=== PATIENT | female | born 1960 | race Caucasian/White ===

== ENCOUNTER → 2017-08-28 | Outpatient (REF) ==
[2017-08-28 18:56] LABS: THYROID STIMULATING HORMONE 1.05 uIU/mL (0.465-4.680)
== END ==
LOC: ZLAB.WCH 18:06
PROVIDERS: Family Medicine
DX: Z01.89 Encounter for other specified special examinations (principal)

== ENCOUNTER → 2022-05-21 | Outpatient (REF) | LOC: COL.CARD 07:19 | DX: Z01.810 Encounter for preprocedural cardiovascular examination (principal) ==

== ENCOUNTER → 2024-07-21 | Outpatient (CLI) | payer BC | LOC: COL.RAD 08:33 | DX: Z12.2 Encounter for screening for malignant neoplasm of respiratory organs (principal); F17.200 Nicotine dependence, unspecified, uncomplicated ==